=== PATIENT | male | born 2005 | race Caucasian/White ===

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

== ENCOUNTER 2024-04-15 16:41 | Outpatient (CLI) | payer OTHER ==
[2024-04-15 18:01] LABS: CHOL/HDL RATIO 2.4 (1-4.5)
== END 2024-04-15 20:07 | disposition home or self-care (01) ==
LOC: MLB 16:41
PROVIDERS: ATTEND Preventive Medicine Preventive Medicine/Occupational Environmental Medicine
DX: L70.0 Acne vulgaris (principal)
CPT/HCPCS: 36415; 84450; 84460

== ENCOUNTER 2024-05-19 09:41 | Outpatient (CLI) | payer OTHER ==
[2024-05-19 10:26] LABS: CHOL/HDL RATIO 2.7 (1-4.5)
== END 2024-05-19 20:28 | disposition home or self-care (01) ==
LOC: MLB 09:41
PROVIDERS: ATTEND Dermatology
DX: L70.0 Acne vulgaris (principal)
CPT/HCPCS: 36415; 84450; 84460